=== PATIENT | male | born 1960 | race Caucasian/White ===

== ENCOUNTER → 2017-05-20 | Outpatient (CLI) | payer MEDICARE, OTHER ==
[~2017-05-20] MED LIST: ALBUTEROL17 GM INH; AMITRIPTYLINE H50 MG PO; ARTIFICIAL TEAR15 M9 OP; ATENOLOL PO; ATORVASTATIN CA20 MG PO; BACLOFEN10 MG PO; CALCIUM STOOL240 M1 PO; CLOTRIM ANTIFUN15 G1 TP; DICYCLOMINE PO; DITROPAN PO; FELDENE20 MG PO; HUMULIN R500 U/ML SQ; HUMULIN R500 U/ML SUBQ; HYDRALAZINE HC100 MG PO; HYDROCODON-ACE1 EAC7 PO; LISINOPRIL PO; LOPID600 MG PO; LORTAB 10/500 T1 TAB PO; METFORMIN HCL1000 M1 PO; METFORMIN PO; MOMETASONE FUROATE INH; MONTELUKAST SOD10 MG PO; NASAREL29 MCG; NORVASC PO; NORVASC10 MG PO; NOVOLIN N100 U/ML INJ; NOVOLIN R100 U/ML INJ; OXYCONTIN20 MG PO; PANTOPRAZOLE SO40 MG PO; PROAIR RESPICL90 MCG IH; PROTONIX PO; PSYLLIUM PO; REMERON SOLTAB45 MG PO; ROBAXIN 750750 MG PO; SEREVENT D50 MCG/DIS PO; SEROQUEL300 M1 PO; SERTRALINE HCL100 M1 PO; SINGULAIR PO; TRAZODONE PO; TRENTAL400 MG PO; TRIDERM30 GM TP; VICTOZA0.6 MG/0.1 SQ; ZOCOR PO; ZOLOFT PO
--- NOTE | ~2017-05-20 | CR170 ---
[facility] A Service of [facility] & [facility] RADIOLOGY TEXT RESULTS PATIENT: ANTHONY ESPINOZA LOCATION: [facility] : 58 UNIT #: [id number] AGE: [address]: Stella Bar MD SEX: M ORDER DR: [id number] [facility] [address] [place], [place] [address] [id number] O MR#: [id number] Acc #: [id number] NAME: ANTHONY ESPINOZA : 1960 SEX: M STUDY DATE/TIME: 05/20/2017 11:21 UNIT: [facility] ROOM: STUDY DESCRIPTION: CR Knee 2 Views Rt Attending Physician: Stella Bar M.D. Referring Physician: Stella Bar M.D. Ordering Physician: Stella Bar M.D. Primary Care Physician: Stella Bar M.D. MEDICAL IMAGING REPORT This report is preliminary unless electronic signature is present EXAM Right knee 2 views 05/20/2017 HISTORY Right knee pain for 1 year. History of prior right femur fracture. No recent trauma. FINDINGS 2 views of the right knee demonstrate no acute fracture. There is an intramedullary daniel in place within the visualized distal right femur. The bones appear somewhat osteopenic. The joint space is normally maintained. There is no joint effusion. Dictated by... Christofer Major M.D. THIS IS AN ELECTRONICALLY VERIFIED REPORT Christofer Major M.D. at 05/21/2017 8:13 AM LAXMI/aris TD: 05/20/2017 18:30 JOB #: [id number] MEDICAL IMAGING REPORT Page 1 of 1 COPY
== END | disposition home or self-care (01) ==
LOC: CRAD 10:55
DX: M25.561 Pain in right knee (principal)
CPT/HCPCS: 73560

== ENCOUNTER 2017-07-26 16:41 | Emergency (ER) | payer MEDICARE, OTHER ==
[~2017-07-26] VITALS: Ht 182.9 cm; Wt 127.0 kg
--- NOTE | ~2017-07-26 | US85 ---
[facility] A Service of [facility] & [facility] RADIOLOGY TEXT RESULTS PATIENT: ANTHONY ESPINOZA LOCATION: [facility] : 58 UNIT #: [id number] AGE: [address]: Francine Waters APRN SEX: M ORDER DR: [id number] [facility] [address]. [place], [place] [address] [id number] E MR#: [id number] Acc #: [id number] NAME: ANTHONY ESPINOZA : 1960 SEX: M STUDY DATE/TIME: 07/26/2017 17:59 UNIT: [facility] ROOM: STUDY DESCRIPTION: [facility] Attending Physician: Francine Waters A.P.R.N. Ordering Physician: Ed Hakan Mendoza M.D. Primary Care Physician: Stella Bar M.D. MEDICAL IMAGING REPORT This report is preliminary unless electronic signature is present EXAM Right lower extremity venous Doppler. INDICATIONS Severe pain in the right leg for 5 hours. TECHNIQUE Alves-scale, color Doppler and spectral Doppler waveform analysis was performed through the patient's right lower extremity. FINDINGS The examination is negative. There is no evidence of right lower extremity deep venous thrombus from the groin to the lower calf. Visualized greater saphenous vein is also patent. IMPRESSION Negative examination. No evidence of right lower extremity DVT. Dictated by... Olive Candelario M.D. THIS IS AN ELECTRONICALLY VERIFIED REPORT Olive Candelario M.D. at 08/07/2017 8:25 AM MODESTA/james TD: 07/27/2017 21:46 JOB #: [id number] MEDICAL IMAGING REPORT Page 1 of 1 COPY
== END 2017-07-26 19:24 | disposition home or self-care (01) ==
LOC: CED 16:41 → CFTX 16:41
DX: M79.661 Pain in right lower leg (principal); Z88.0 Allergy status to penicillin; Z98.890 Other specified postprocedural states; Z88.1 Allergy status to other antibiotic agents; Z79.899 Other long term (current) drug therapy
CPT/HCPCS: 29515; 93971; 96372; 99283; J2270

== ENCOUNTER 2017-07-27 17:23 | Emergency (ER) | payer MEDICARE, OTHER ==
[~2017-07-27] VITALS: Ht 182.9 cm; Wt 127.0 kg
--- NOTE | ~2017-07-27 | CR181 ---
[facility] A Service of [facility] & [facility] RADIOLOGY TEXT RESULTS PATIENT: ANTHONY ESPINOZA LOCATION: [facility] : 58 UNIT #: [id number] AGE: [address]: Paola Haq SEX: M ORDER DR: [id number] [facility] [address] [place], [place] [address] [id number] E MR#: [id number] Acc #: [id number] NAME: ANTHONY ESPINOZA : 1960 SEX: M STUDY DATE/TIME: 07/27/2017 18:34 UNIT: [facility] ROOM: STUDY DESCRIPTION: CR Lumbar Spine 2 or 3 Views Attending Physician: Paola Haq P.A.-C. Ordering Physician: Paola Haq P.A.-C. Primary Care Physician: Stella Bar M.D. MEDICAL IMAGING REPORT This report is preliminary unless electronic signature is present EXAM Lumbar spine series dated 07/27/2017. COMPARISON MRI lumbar spine without contrast dated 05/08/2016. HISTORY Low-back pain for a week. Patient fell a week ago and pain is worse since yesterday. Patient also has chronic pain. FINDINGS Three views of the lumbar spine were obtained. No acute displaced fracture or subluxation. Vertebral body heights and alignment are preserved. Anterior endplate osteophytes are at multiple levels. Facet hypertrophic changes are noted in the [id number] lumbar spine. There is vacuum disc at L5-S1. Pre and paravertebral soft tissues are grossly unremarkable. Evidence of cholecystectomy. Pedicles are intact. IMPRESSION 1. No acute displaced fracture or subluxation. 2. Degenerative changes are noted at multiple levels, relatively worse in the lower lumbar spine, particularly at L4-5 and L5-S1. 3. MRI or CT can be considered for further evaluation of degenerative changes on elective basis. Dictated by... César Montiel M.D. THIS IS AN ELECTRONICALLY VERIFIED REPORT César Montiel M.D. at 07/28/2017 9:16 PM [address]. [facility] A Service of [facility] & [facility] RADIOLOGY TEXT RESULTS PATIENT: ANTHONY ESPINOZA LOCATION: [facility] : 58 UNIT #: [id number] AGE: [address]: Paola Haq SEX: M ORDER DR: Rivka TD: 07/28/2017 18:50 JOB #: [id number] MEDICAL IMAGING REPORT Page 1 of 1 COPY
--- NOTE | ~2017-07-27 | CR107 ---
[facility] A Service of [facility] & [facility] RADIOLOGY TEXT RESULTS PATIENT: ANTHONY ESPINOZA LOCATION: [facility] : 58 UNIT #: [id number] AGE: [address]: Paola Haq SEX: M ORDER DR: [id number] [facility] [address]. [place], [place] [address] [id number] E MR#: [id number] Acc #: [id number] NAME: ANTHONY ESPINOZA : 1960 SEX: M STUDY DATE/TIME: 07/27/2017 18:35 UNIT: [facility] ROOM: STUDY DESCRIPTION: CR Femur 2 Views Rt Attending Physician: Paola Haq P.A.-C. Ordering Physician: Paola Haq P.A.-C. Primary Care Physician: Stella Bar M.D. MEDICAL IMAGING REPORT This report is preliminary unless electronic signature is present EXAM Right femur series, 07/27/2017 COMPARISON Right knee series, 05/20/2017. Prior right femur series is not available for comparison. HISTORY The patient has pain in the right upper leg for a week, worse yesterday. Chronic pain. FINDINGS Two views of the right femur were obtained. There is an intramedullary daniel along the course of the right femur. Dystrophic bone formation and deformity is noted in the proximal to mid shaft of the right femur. It is most suggestive of a healed fracture. There is also bony irregularity and dystrophic calcification/fracture fragment noted along the lateral aspect of the right greater trochanter. Chronic appearing. No superimposed acute displaced fracture or dislocation is seen. Arthritic changes are noted in the right knee joint involving the tibiofemoral and to a lesser extent in the patellofemoral joints. Dictated by... César Montiel M.D. THIS IS AN ELECTRONICALLY VERIFIED REPORT César Montiel M.D. at 07/28/2017 9:16 PM CPR/perla TD: 07/28/2017 18:48 JOB #: [id number] [facility] A Service of [facility] & [facility] RADIOLOGY TEXT RESULTS PATIENT: ANTHONY ESPINOZA LOCATION: [facility] : 58 UNIT #: [id number] AGE: [address]: Paola Haq SEX: M ORDER DR: MEDICAL IMAGING REPORT Page 1 of 1 COPY
== END 2017-07-27 19:40 | disposition home or self-care (01) ==
LOC: CED 17:23 → CFTX 17:23
DX: M54.16 Radiculopathy, lumbar region (principal); E11.9 Type 2 diabetes mellitus without complications; I10 Essential (primary) hypertension; G62.9 Polyneuropathy, unspecified; F43.10 Post-traumatic stress disorder, unspecified; G47.33 Obstructive sleep apnea (adult) (pediatric); Z88.0 Allergy status to penicillin; Z88.1 Allergy status to other antibiotic agents
CPT/HCPCS: 72100; 73552; 96372; 99283; J1170; J1885